=== PATIENT | male | born 1965 | race Caucasian/White ===

== ENCOUNTER 2017-11-25 21:31 | Emergency (ER) | payer MEDICAID ==
[~2017-11-25] VITALS: Ht 180.3 cm; Wt 63.6 kg
[~2017-11-25 21:31] MED LIST: AZIT250T PO; CYCL-1 PO; DOCU-28 PO; HYDR-2561 PO; HYDR-569 PO; HYDR25SU32 RC; IBUP-1986 PO; NO HOME MEDS; WITC1MED20 TOP
[2017-11-25 22:00] VITALS: BP 116/84
[2017-11-25] MEDS ORDERED: TETanus/Pertussis (Acell)/Diphther VAC/PF (Tdap-Adult) 0.5ml syringe IM ONE (22:45)
[2017-11-25] MEDS ORDERED: IBUP-1986 PO (23:54)
== END 2017-11-26 00:03 | disposition home or self-care (01) ==
LOC: ER 21:32
DX: S63.641A Sprain of metacarpophalangeal joint of right thumb, initial encounter (principal); Z88.0 Allergy status to penicillin; Z79.899 Other long term (current) drug therapy; X58.XXXA Exposure to other specified factors, initial encounter; Y93.55 Activity, bike riding; Y92.89 Other specified places as the place of occurrence of the external cause; Y99.8 Other external cause status
CPT/HCPCS: 73110; 90471; 90715; 99284

== ENCOUNTER 2018-11-28 16:37 | Emergency (ER) | payer MEDICAID ==
[~2018-11-28 16:37] MED LIST changes: -AZIT250T PO; -CYCL-1 PO; -DOCU-28 PO; -HYDR-2561 PO; -HYDR-569 PO; -HYDR25SU32 RC; -WITC1MED20 TOP
== END 2018-11-28 18:58 | disposition left against medical advice (07) ==
LOC: ER 16:38
DX: B86 Scabies (principal); Z53.21 Procedure and treatment not carried out due to patient leaving prior to being seen by health care provider

== ENCOUNTER 2018-12-01 14:18 | Emergency (ER) | payer MEDICAID ==
[~2018-12-01] VITALS: Ht 180.3 cm; Wt 72.7 kg
[2018-12-01 14:23] VITALS: BP 143/94
[2018-12-01] MEDS ORDERED: PERM60CR19 TP (14:45)
== END 2018-12-01 14:56 | disposition home or self-care (01) ==
LOC: ER 14:20
DX: B86 Scabies (principal); Z88.0 Allergy status to penicillin; Z79.899 Other long term (current) drug therapy
CPT/HCPCS: 99283

== ENCOUNTER 2019-01-14 00:27 | Emergency (ER) | payer MEDICAID ==
[~2019-01-14] VITALS: Ht 180.3 cm; Wt 52.5 kg
--- NOTE | 2019-01-14 01:25 | NUR ---
PT SITTING QUIETLY IN ROOM ON THE SIDE OF THE [facility]. AWAITING ER .
[2019-01-14] MEDS ORDERED: acetaminophen 325mg tablet PO ONE (01:35)
[2019-01-14] MEDS ORDERED: proparacaine 0.5% ophthalmic drops 15ml RIGHTEYE ONE (01:35)
[2019-01-14 01:48] VITALS: BP 159/85
== END 2019-01-14 02:33 | disposition home or self-care (01) ==
LOC: ER 00:27
DX: H57.11 Ocular pain, right eye (principal); F10.129 Alcohol abuse with intoxication, unspecified; Z88.0 Allergy status to penicillin; Z79.899 Other long term (current) drug therapy; Y90.9 Presence of alcohol in blood, level not specified
CPT/HCPCS: 99283

== ENCOUNTER 2019-03-22 01:35 | Emergency (ER) | payer MEDICAID ==
[~2019-03-22] VITALS: Ht 180.3 cm; Wt 55.0 kg
[2019-03-22 01:49] VITALS: BP 129/81
[2019-03-22] MEDS ORDERED: ketorolac trometh inj. 60 MG/2 ML VIAL IM ONE (02:10)
[2019-03-22] MEDS ORDERED: bacitracin 15gm ointment TP ONE (02:10)
[2019-03-22] MEDS ORDERED: SULF1TAB49 PO (02:35)
== END 2019-03-22 02:53 | disposition home or self-care (01) ==
LOC: ER 01:36
DX: S51.012A Laceration without foreign body of left elbow, initial encounter (principal); Z88.0 Allergy status to penicillin; V49.88XA Car occupant (driver) (passenger) injured in other specified transport accidents, initial encounter; Y93.89 Activity, other specified; Y92.413 State road as the place of occurrence of the external cause; Y99.9 Unspecified external cause status
CPT/HCPCS: 96372; 99283; J1885

== ENCOUNTER 2019-08-26 12:15 | Emergency (ER) | payer MEDICAID ==
[~2019-08-26] VITALS: Ht 180.3 cm; Wt 69.9 kg
[2019-08-26 12:32] VITALS: BP 143/91
[2019-08-26] MEDS ORDERED: HYDROcodone/acetaminophen 10/325mg tab PO ONE (12:45)
--- NOTE | 2019-08-26 12:51 | NUR ---
TO XRAY AMBULATED
[2019-08-26] MEDS ORDERED: NAPR-56 PO (13:44)
== END 2019-08-26 14:20 | disposition home or self-care (01) ==
LOC: ER 12:16
DX: S49.91XA Unspecified injury of right shoulder and upper arm, initial encounter (principal); S29.9XXA Unspecified injury of thorax, initial encounter; M25.511 Pain in right shoulder; M54.2 Cervicalgia; R07.81 Pleurodynia; Z72.89 Other problems related to lifestyle; Z88.0 Allergy status to penicillin; Z79.899 Other long term (current) drug therapy; V19.3XXA Pedal cyclist (driver) (passenger) injured in unspecified nontraffic accident, initial encounter; X58.XXXA Exposure to other specified factors, initial encounter; Y93.I9 Activity, other involving external motion; Y92.89 Other specified places as the place of occurrence of the external cause; Y99.8 Other external cause status
CPT/HCPCS: 71046; 73000; 99283; 99284

== ENCOUNTER 2023-04-14 11:11 | Emergency (ER) | payer MEDICAID ==
[~2023-04-14] VITALS: Ht 177.8 cm; Wt 70.5 kg
[~2023-04-14 11:11] MED LIST changes: +DIPH-423 PO; +PRED10TA PO
[2023-04-14] MEDS ORDERED: normal saline 1000ML IV soln IV ONE (11:45)
[2023-04-14 12:42] LABS: EOSINOPHILS % (AUTO) 0.4 % (0-6); MONOCYTES # (AUTO) 1.5 X10'3 (0-0.9); RED CELL DISTRIBUTION WIDTH 12.9 % (11.5-14.5)
[2023-04-14 12:44] LABS: BASOPHILS % (AUTO) 0.6 % (0-1); HEMATOCRIT 42.3 % (42.0-52.0); HEMOGLOBIN 14.4 g/dl (14.0-17.9); LYMPHOCYTES # (AUTO) 1.3 X10'3 (1.1-4.8); LYMPHOCYTES % (AUTO) 17.5 % (21-51); MEAN CORPUSCULAR HEMOGLOBIN 32.6 PG (27.0-31.0); MEAN CORPUSCULAR VOLUME 95.9 FL (78-98); MEAN PLATELET VOLUME 8.6 FL (7.4-10.4); MONOCYTES % (AUTO) 19.7 % (2-12); NEUTROPHILS # (AUTO) 4.6 X10'3 (1.8-7.7); NEUTROPHILS % (AUTO) 61.8 % (42-75); PLATELET COUNT 250 X10'3 (140-440); RED BLOOD COUNT 4.41 X10'6 (4.70-6.10); WHITE BLOOD COUNT 7.4 X10'3 (4.5-11.0)
[2023-04-14 12:47] LABS: ALANINE AMINOTRANSFERASE 37 U/L (12-78); ALBUMIN 3.6 G/DL (3.4-5.0); ALBUMIN/GLOBULIN RATIO 0.9 (1.1-1.5); ALKALINE PHOSPHATASE 103 IU/L (46-116); ANION GAP 5 (8-16); ASPARTATE AMINO TRANSFERASE 43 U/L (10-37); BILIRUBIN,TOTAL 0.3 MG/DL (0.1-1.0); BLOOD UREA NITROGEN 6 MG/DL (7-18); BUN/CREATININE RATIO 8.1 (10.0-20.0); CALCIUM 8.9 MG/DL (8.5-10.1); CHLORIDE 94 MMOL/L (99-107); CREATININE 0.74 MG/DL (0.60-1.10); GLUCOSE 121 MG/DL (70-104); MAGNESIUM 1.7 MG/DL (1.5-2.4); POTASSIUM 3.9 MMOL/L (3.5-5.1); SODIUM 131 MMOL/L (135-145); TOTAL CARBON DIOXIDE 31.9 MMOL/L (24-32); TOTAL PROTEIN 7.8 G/DL (6.4-8.2); eCRCL 112 ML/MIN; eGFR > 90 ML/MIN
[2023-04-14] MEDS ORDERED: CLOB15CR11 TOP (13:40)
[2023-04-14] MEDS ORDERED: CEPH500C2 PO (13:40)
[2023-04-14] MEDS ORDERED: SULF1TAB49 PO (13:41)
[2023-04-14] MEDS ORDERED: bacitracin 15gm ointment TP ONE (13:45)
[2023-04-14 14:16] VITALS: BP 143/91; PULSE 89; RESP 16; TEMP 98.2; O2SAT 98
== END 2023-04-14 14:35 | disposition home or self-care (01) ==
LOC: ER 11:12
DX: L03.115 Cellulitis of right lower limb (principal); L40.9 Psoriasis, unspecified; F12.90 Cannabis use, unspecified, uncomplicated; Z72.89 Other problems related to lifestyle; Z88.0 Allergy status to penicillin; Z79.899 Other long term (current) drug therapy
CPT/HCPCS: 36415; 71045; 80053; 83605; 83735; 84145; 85025; 87040; 93005; 99285; A6258; A6402

== ENCOUNTER 2023-08-14 10:18 | Emergency (ER) | payer MEDICAID ==
[~2023-08-14] VITALS: Ht 180.3 cm; Wt 69.6 kg
[~2023-08-14 10:18] MED LIST changes: +CLOB15CR11 TOP
[2023-08-14 10:21] VITALS: BP 155/8; PULSE 88; RESP 16; TEMP 98.6; O2SAT 98
== END 2023-08-14 11:06 | disposition left against medical advice (07) ==
LOC: ER 10:18
DX: M54.2 Cervicalgia (principal); Z53.21 Procedure and treatment not carried out due to patient leaving prior to being seen by health care provider
CPT/HCPCS: 99281

== ENCOUNTER 2023-08-22 15:03 | Emergency (ER) | payer MEDICAID ==
[~2023-08-22] VITALS: Ht 180.3 cm; Wt 70.0 kg
[2023-08-22 15:17] VITALS: BP 121/89; PULSE 91; RESP 18; O2SAT 97
[2023-08-22] MEDS ORDERED: PRED20TA PO (16:51)
[2023-08-22] MEDS ORDERED: METH-798 PO (16:51)
[2023-08-22] MEDS: dexamethasone sod phosphate 10mg/ml inj IM STA (17:09)
[2023-08-22 17:23] VITALS: TEMP 98.4
== END 2023-08-22 17:24 | disposition home or self-care (01) ==
LOC: ER 15:04
DX: M54.12 Radiculopathy, cervical region (principal); Z88.0 Allergy status to penicillin; Z88.8 Allergy status to other drugs, medicaments and biological substances; Z79.899 Other long term (current) drug therapy
CPT/HCPCS: 96372; 99283; J1100

== ENCOUNTER 2024-07-29 14:35 | Emergency (ER) | payer MEDICAID ==
[~2024-07-29 14:35] MED LIST changes: +METH-798 PO
== END 2024-07-29 17:33 | disposition left against medical advice (07) ==
LOC: ER 14:35
DX: S09.8XXA Other specified injuries of head, initial encounter (principal); Z53.21 Procedure and treatment not carried out due to patient leaving prior to being seen by health care provider; Z88.0 Allergy status to penicillin; X58.XXXA Exposure to other specified factors, initial encounter; Y93.89 Activity, other specified; Y92.89 Other specified places as the place of occurrence of the external cause; Y99.8 Other external cause status

== ENCOUNTER 2024-08-01 15:36 | Emergency (ER) | payer MEDICAID ==
[~2024-08-01] VITALS: Ht 180.3 cm; Wt 73.7 kg
[2024-08-01 15:42] VITALS: TEMP 98.7
[2024-08-01] MEDS: ketorolac trometh 30MG/ML vial 30 MG/ML VIAL IM ONE (16:52)
[2024-08-01 17:09] VITALS: BP 119/77; PULSE 73; RESP 15; O2SAT 95
== END 2024-08-01 17:07 | disposition home or self-care (01) ==
LOC: ER 15:37
DX: S06.0XAA Concussion with loss of consciousness status unknown, initial encounter (principal); F12.90 Cannabis use, unspecified, uncomplicated; F10.90 Alcohol use, unspecified, uncomplicated; Z88.0 Allergy status to penicillin; Z79.1 Long term (current) use of non-steroidal anti-inflammatories (NSAID); Z79.52 Long term (current) use of systemic steroids; Z79.899 Other long term (current) drug therapy; Y90.9 Presence of alcohol in blood, level not specified; X58.XXXA Exposure to other specified factors, initial encounter; Y93.89 Activity, other specified; Y92.89 Other specified places as the place of occurrence of the external cause; Y99.8 Other external cause status
CPT/HCPCS: 70450; 96372; 99285; J1885

== ENCOUNTER 2024-10-28 09:27 | Emergency (ER) | payer MEDICAID ==
[~2024-10-28] VITALS: Ht 180.3 cm; Wt 67.4 kg
[2024-10-28 09:32] VITALS: BP 157/97; PULSE 84; O2SAT 99
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
[2024-10-28 10:03] VITALS: RESP 16
[2024-10-28] MEDS: ketorolac trometh 15mg/ml vial 15 MG/ML ML IM ONE (10:03)
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
[2024-10-28] MEDS ORDERED: IBUP-1986 PO (10:19)
[2024-10-28 10:39] VITALS: TEMP 97.1
== END 2024-10-28 10:41 | disposition home or self-care (01) ==
LOC: ER 09:28
DX: R07.89 Other chest pain (principal); Z88.0 Allergy status to penicillin
CPT/HCPCS: 71110; 96372; 99283; J1885